=== PATIENT | male | born 1995 | race Caucasian/White ===

== ENCOUNTER 2023-05-17 10:14 | Emergency (ER) | payer OTHER ==
[~2023-05-17] VITALS: Ht 193 cm; Wt 119.5 kg
[2023-05-17 11:20] LABS: BASO # 0.1 10^3/uL (0.0-0.2); BASO % 0.6 % (0.0-1.0); EOS # 0.7 10^3/uL (0.0-0.5); EOS % 6.8 % (0.0-3.0); HEMATOCRIT 47.5 % (42.0-52.0); HEMOGLOBIN 16.1 g/dl (13.5-17.5); LYMPH # 2.3 10^3/uL (1.5-5.0); MEAN CORPUSCULAR HEMOGLOBIN 31.1 pg (27.0-33.0); MEAN CORPUSCULAR HGB CONC 33.9 g/dl (32.0-36.5); MEAN CORPUSCULAR VOLUME 91.9 fl (80.0-96.0); MONO % 10.5 % (2.0-8.0); NEUTROPHILS # 5.6 10^3/uL (1.5-8.5); NEUTROPHILS % 57.9 % (36.0-66.0); PLATELET COUNT, AUTOMATED 280 10^3/uL (150-450); RED BLOOD COUNT 5.17 10^6/uL (4.30-6.10); WHITE BLOOD COUNT 9.7 10^3/uL (4.0-10.0)
[2023-05-17] MEDS ORDERED: AUGMENTIN 875 MG TAB PO ONE (11:25)
[2023-05-17] MEDS ORDERED: IPRATROPIUM 0.5MG/ALBUTEROL 2.5MG INH SOL UD 3ML (DUONEB) NEB ONE (11:25)
[2023-05-17 11:36] LABS: ALBUMIN 4.3 G/DL (3.2-5.2); ALKALINE PHOSPHATASE 65 U/L (46-116); ALT/SGPT 38 U/L (7.0-40); AST/SGOT 24 U/L (<34); BILIRUBIN,DIRECT 0.3 MG/DL (<0.4); BLOOD UREA NITROGEN 19 MG/DL (9-23); CALCIUM LEVEL 9.6 MG/DL (8.5-10.1); CARBON DIOXIDE LEVEL 28 MMOL/L (20-31); CHLORIDE LEVEL 101 MMOL/L (98-107); CREATININE FOR GFR 0.98 MG/DL (0.70-1.30); GLOMERULAR FILTRATION RATE > 60.0 (>60); GLUCOSE, FASTING 85 MG/DL (60-100); POTASSIUM SERUM 4.3 MMOL/L (3.5-5.1); SODIUM LEVEL 138 MMOL/L (136-145); TOTAL PROTEIN 7.5 G/DL (5.7-8.2)
[2023-05-17] MEDS ORDERED: VENTAER INH ×2 (12:04→12:49)
[2023-05-17] MEDS ORDERED: AMOX875T2 PO ×2 (12:04→12:49)
[2023-05-17 12:19] VITALS: BP 139/75; TEMP 97.6; O2SAT 100
== END 2023-05-17 12:51 | disposition home or self-care (01) ==
LOC: M ED 10:14
DX: H66.001 Acute suppurative otitis media without spontaneous rupture of ear drum, right ear (principal); J98.01 Acute bronchospasm; Z88.8 Allergy status to other drugs, medicaments and biological substances

== ENCOUNTER 2024-08-15 09:39 | Emergency (ER) | payer OTHER, SELFPAY ==
[~2024-08-15] VITALS: Ht 190.5 cm; Wt 127.9 kg
[~2024-08-15 09:39] MED LIST: AMOX875T2 PO; VENTAER INH
[2024-08-15 12:39] VITALS: BP 157/87; TEMP 96.3; O2SAT 99
== END 2024-08-15 13:19 | disposition home or self-care (01) ==
LOC: M ED 09:39
DX: M25.571 Pain in right ankle and joints of right foot (principal); Z88.8 Allergy status to other drugs, medicaments and biological substances

== ENCOUNTER 2024-11-10 19:44 | Emergency (ER) | payer SELFPAY ==
[~2024-11-10] VITALS: Ht 190.5 cm; Wt 123.8 kg
[2024-11-10 23:19] LABS: BASO # 0.1 10^3/uL (0.0-0.2); BASO % 0.8 % (0.0-1.0); EOS # 1.5 10^3/uL (0.0-0.5); EOS % 10.4 % (0.0-3.0); HEMATOCRIT 43.6 % (42.0-52.0); HEMOGLOBIN 14.6 g/dl (13.5-17.5); LYMPH # 3.9 10^3/uL (1.5-5.0); MEAN CORPUSCULAR HEMOGLOBIN 31.3 pg (27.0-33.0); MEAN CORPUSCULAR HGB CONC 33.5 g/dl (32.0-36.5); MEAN CORPUSCULAR VOLUME 93.6 fl (80.0-96.0); MONO # 1.2 10^3/uL (0.0-0.8); MONO % 8.1 % (2.0-8.0); NEUTROPHILS # 7.6 10^3/uL (1.5-8.5); NEUTROPHILS % 53.3 % (36.0-66.0); PLATELET COUNT, AUTOMATED 254 10^3/uL (150-450); RED BLOOD COUNT 4.66 10^6/uL (4.30-6.10); WHITE BLOOD COUNT 14.3 10^3/uL (4.0-10.0)
[2024-11-10 23:26] LABS: ERYTHROCYTE SEDIMENTATION RATE 4 mm/hr (0-15)
[2024-11-10] MEDS: KETOROLAC 30 MG/ML 1ML VIAL IV ONE (23:45)
[2024-11-10] MEDS: dexAMETHasone 20MG/5ML VIAL IV ONE (23:45)
[2024-11-10 23:57] LABS: ALBUMIN 4.2 G/DL (3.2-5.2); ALKALINE PHOSPHATASE 53 U/L (40-129); ALT/SGPT 33 U/L (7.0-40); AST/SGOT 22 U/L (<34); BILIRUBIN,DIRECT 0.1 MG/DL (<0.4); BILIRUBIN,TOTAL 0.4 MG/DL (0.3-1.2); C REACTIVE PROTEIN QUANTITATIV < 0.50 MG/DL (<1.0)
[2024-11-11] MEDS ORDERED: ISOVUE-370 76% 100ML VIAL As Ordered ONE (00:29)
[2024-11-11] MEDS ORDERED: AMOX875T2 PO (01:47)
[2024-11-11] MEDS ORDERED: KETO10TAB PO (01:47)
[2024-11-11] MEDS: AUGMENTIN 875 MG TAB PO ONE (01:57)
[2024-11-11 02:01] VITALS: BP 145/78; TEMP 98; O2SAT 98
== END 2024-11-11 02:05 | disposition home or self-care (01) ==
LOC: M ED 19:44
DX: T16.1XXA Foreign body in right ear, initial encounter (principal); K11.20 Sialoadenitis, unspecified; R22.0 Localized swelling, mass and lump, head; K02.9 Dental caries, unspecified; Z88.8 Allergy status to other drugs, medicaments and biological substances; Z79.2 Long term (current) use of antibiotics
CPT/HCPCS: 70487; 80076; 80143; 85025; 85652; 86140; 96374; 99284; J1100; J1885; Q9967